=== PATIENT | female | born 1975 | race Caucasian/White ===

== ENCOUNTER → 2018-03-11 | Emergency (ER) | payer OTHER ==
[~2018-03-11] VITALS: Ht 162.6 cm; Wt 61.2 kg
[~2018-03-11] MED LIST: BUDESONIDE0.5 MG/2 M IH; PROMETH-CODEIN 65 ML PO
== END | disposition home or self-care (01) ==
LOC: ER 03:15
DX: J98.01 Acute bronchospasm (principal)